=== PATIENT | female | born 1970 | race Caucasian/White ===

== ENCOUNTER 2016-04-09 09:01 | Day surgery (SDC) | payer BC ==
--- NOTE | 2016-04-08 12:37 | PCM.PREANE ---
Preanesthetic Assessment - ANESTHESIA/TRANSFUSION/FAMILY HX Anesthesia/Transfusion History: Prior Anesthesia (Multiple GA) Family History of Anesthesia Reaction: No - REVIEW OF SYSTEMS Constitutional: Reports: no symptoms DIRECTOR DIABETES: Reports: no symptoms Respiratory: Reports: no symptoms Cardiovascular: Reports: no symptoms GI: Reports: no symptoms Other: Reports: none - PHYSICAL ASSESSMENT Height: 5 ft 4 in Weight: 77.564 kg ASA Class: 3 Mental Status: alert & oriented x3 Airway Class: Mallampati = 2 Dentition: Reports: normal dentition Thyro-Mental Finger Breadths: 3 Mouth Opening Finger Breadths: 3 ROM/Head Extension: full Respiratory Status: lungs clear to auscultation bilaterally Cardiovascular Status: regular rate & rhythm, normal S1, S2, no murmur, blood pressure WNL - ALLERGIES Allergies/Adverse Reactions: Allergies Allergy/AdvReac Type Severity Reaction Status Date / Time No Known Allergies Allergy Verified 06/15/13 08:10 - ANESTHESIA PLAN Anesthesia Type Planned: MAC - ACKNOWLEDGEMENTS Pt an appropriate candidate for the planned anesthesia: Yes Alternatives and risks of anesthesia discussed w pt/guardian: Yes Pt/Guardian understands and agree with anesthesia plan: Yes PreAnesthesia Questionnaire HEENT History: Reports: Other (see below) Other HEENT History: wears glasses/contacts Cardiovascular History: Reports: Hypertension (Chronic) Respiratory History: Reports: None Gastrointestinal History: Reports: GERD Genitourinary History: Reports: Urinary incontinence 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), Seizure Other Neuro History: seizure prior to brain aneurysm surgery Psychiatric History: Reports: Depression Endocrine/Metabolic History: Reports: Diabetes, gestational, Hypothyroidism Hematologic History: Reports: Blood transfusion(s) Immunologic History: Reports: None Oncologic (Cancer) History: Reports: None Dermatologic History: Reports: None - Infectious Disease History Infectious Disease History: Reports: None - Past Surgical History Head Surgeries/Procedures: Reports: Other (see below) (Cerebral aneurysm with coiling and later clipping) HEENT Surgical History: Reports: Tonsillectomy, Other (see below) Other HEENT Surgeries/Procedures: hx ear canal surgery GI Surgical History: Reports: Cholecystectomy Female Surgical History: Reports: section, Cervical cryotherapy Other Female Surgeries/Procedures: ESSURE Other Neurological Surgeries/Procedures: hx cerebral aneurysm coiling 2009, follow up aneurysm clipping/wrap 2011 - SUBSTANCE USE Smoking Status *Q: Former Smoker Tobacco Use Within Last Twelve Months: No Second Hand Smoke Exposure: No Recreational Drug Use History: No - HOME MEDS Home Medications: Home Meds Cholecalciferol (Vitamin D3) [Vitamin D] 1,000 unit PO DAILY 12/08/13 [History] Levothyroxine Sodium [Levoxyl] 50 mcg PO DAILY 12/08/13 [History] Omeprazole 20 mg PO DAILY 12/08/13 [History] Sennosides/Docusate Sodium [Stool Softener] 1 tab PO DAILY 12/08/13 [History] amLODIPine [Norvasc] 10 mg PO DAILY 12/08/13 [History] Venlafaxine [Effexor XR] 150 mg PO DAILY 04/04/16 [History] - CURRENT (IN HOUSE) MEDS Current Meds: Current Medications Cefazolin Sodium/Dextrose 1 gm (/ Premix) 50 mls @ 100 mls/hr IV ONETIME ONE Stop: 04/09/16 05:29 Sodium Chloride (Saline Flush) 10 ml FLUSH ASDIRECTED PRN PRN Reason: Keep Vein Open Sodium Chloride (Saline Flush) 2.5 ml FLUSH ASDIRECTED PRN PRN Reason: Keep Vein Open
[~2016-04-09 09:01] MED LIST: Sodium Chloride 0.9% 10 ML Syringe FLUSH PRN; Sodium Chloride 0.9% 2.5 ML Syringe FLUSH PRN; ceFAZolin 1 GM in Premix Bag 1 BAG IV ONE
[2016-04-09] MEDS ORDERED: Lidocaine 1% with EPINEPHrine 1:100,000 20 ML MDV ONE (09:12)
[2016-04-09] MEDS ORDERED: Bupivacaine 0.25% 10 ML SDV ONE (09:12)
[2016-04-09] MEDS ORDERED: Octyl 2-Cyanoacrylate 1 Tube ONE (09:15)
[2016-04-09] MEDS ORDERED: Neomycin/Polymyxin B Bladder Irrigation 1 ML Amp ONE (09:19)
[2016-04-09] MEDS ORDERED: Lactated Ringers 1,000 ML IV SCH (09:30)
[2016-04-09] MEDS ORDERED: Propofol 200 MG/20 ML SDV ONE ×2 (09:30→11:07)
[2016-04-09] MEDS ORDERED: Midazolam 1 MG/ML 2 ML SDV ONE (09:30)
[2016-04-09] MEDS ORDERED: Lidocaine 2% 5 ML SDV ONE (09:30)
[2016-04-09] MEDS ORDERED: Ondansetron 4 MG/2 ML SDV ONE (09:30)
[2016-04-09] MEDS ORDERED: fentaNYL 250 MCG/5 ML SDV ONE (09:30)
[2016-04-09] MEDS ORDERED: fentaNYL 100 MCG/2 ML SDV IVPUSH PRN (09:46)
[2016-04-09] MEDS ORDERED: Fluorescein 5 ML Vial ONE (11:09)
[2016-04-09] MEDS ORDERED: Furosemide 40 MG/4 ML VIAL ONE (11:10)
--- NOTE | 2016-04-09 11:50 | PCM.OPNOTE ---
- General Post-Op/Procedure Note Date of Surgery/Procedure: 04/09/16 Operative Procedure(s): SIS midurethral sling (Solyx), cystoscopy Findings: Urethral hypermobility Pre Op Diagnosis: RAJANI Post-Op Diagnosis: Same Anesthesia Technique: Local, Other (see below) (TIVA) Primary Surgeon: Johanna Be Energy Trader: Elsie Romo Fluid Replacement, Intraop: 1,200 EBL in mLs: 30 Complications: None known Condition: Good Free Text/Narrative:: Dictation [id number]
--- NOTE | 2016-04-09 12:45 | PCM48HPAN ---
Post Anesthesia Note - EVALUATION WITHIN 48HRS OF ANESTHETIC Vital Signs in Normal Range: Yes Patient Participated in Evaluation: Yes Respiratory Function Stable: Yes Airway Patent: Yes Cardiovascular Function Stable: Yes Hydration Status Stable: Yes Pain Control Satisfactory: Yes Nausea and Vomiting Control Satisfactory: Yes Mental Status Recovered: Yes - COMMENTS/OBSERVATIONS Free Text/Narrative:: Pt doing well. Pt bypassed PACU. Denies problems or questions with anesthesia.
[2016-04-09 12:51] VITALS: BP 130/74
--- NOTE | 2016-04-10 06:18 | OR ---
SURGEON: Johanna Be M.D. DATE OF PROCEDURE: 04/09/2016 PREOPERATIVE DIAGNOSIS: Stress urinary incontinence with urethral hypermobility. POSTOPERATIVE DIAGNOSIS: Stress urinary incontinence with urethral hypermobility. PROCEDURE: Single incision site mid urethral sling Solyx and cystoscopy. ELECTRONIC TEST TECHNICIAN: MD Demetrius. ESTIMATED BLOOD LOSS: 30 mL. ANESTHESIA: Total IV anesthesia with local anesthetic. FLUIDS: 1200 mL crystalloid. COMPLICATIONS: None known. FINDINGS: Urethral hypermobility. DISPOSITION: The patient to PACU stable. PROCEDURE IN DETAIL: Luz is a 45-year-old female, who has ongoing difficulties with stress urinary incontinence. Cystometry has been performed and indicates she is a reasonable candidate for mid urethral sling given her stress urinary incontinence and urethral hypermobility. Risks of procedure were discussed and informed consent was obtained. The patient was taken to the operating room, where she underwent IV sedation, was placed in modified dorsal lithotomy position, prepped and draped in the usual sterile fashion. The bladder was drained. Time-out was performed. A weighted speculum was introduced in the vagina. The adductor longus muscle and the tendon was palpated on either side sharply below this in line with the clitoral ivey, a marking of pubic notch was able to be performed with marking pen. Hydrodissection with local anesthetic using 1% with epinephrine 0.25% Marcaine diluted 10 mL each in 20 mL of normal saline was introduced into the midline vaginal mucosa just below the urethral meatus along the periurethral spaces on either side. The anterior vaginal mucosa fixed directly below the urethral meatus was able to be grasped with Allis clamps and approximately 7-mm sagittal midline mucosal incision was created with a 15 blade scalpel. The edges of the mucosa were grasped on either side with Allis clamps and periurethral dissection was performed sharply and bluntly until the medial aspect of the pubic bone was able to be palpated on either side. The Solyx tape introducer was now placed through the right vaginal incision guiding it with the index finger while protecting the sulcus, and then palpating the medial aspect of the bone moving the tape approximately 5 mm away from the bone and angling toward the notching jimenez into the obturator muscle. Once the tape was secured in the obturator muscle, the introducer was removed. The patient's left side of the tape was now introduced through the left vaginal incision once again palpating the medial aspect of the bone moving the introducer slightly away from the bone, and then introducing into the obturator muscle. Attention was now performed to inspecting the tape along the midline. This seems to be appropriately fitting against the suburethral tissue. The bladder was now back filled with 240 mL of normal saline. The catheter was removed. The patient coughed vigorously. No leakage was noted. Therefore, the tape was felt to be satisfactorily tightened. The left side of the tape was now removed from the introducer. The vaginal mucosa was reapproximated using 3-0 Vicryl continuous running locked fashion. Hemostasis appears evident. Cystoscope was introduced using normal saline as suspension media and the dome of the bladder were able to be visualized and found to be intact. The trigone region was inspected. Both ureters were seen to have urine streaming from them. The kee trigone region was inspected on either side. No regions of perforation were noted. The urethra was inspected. No region of perforation noted. The Colunga catheter was now replaced after removing the cystoscope and draining the bladder, and will be removed by instillation once the patient is awakened in PACU. The vaginal sulci on either sides once again inspected and found to be intact and the midline incision was found to be hemostatic. All vaginal instruments removed. The patient tolerated the procedure well. She will go to PACU in stable condition. Sponge, instrument, and needle counts were correct x2. OLIVIA / ALAYNA /[id number]
== END 2016-04-09 14:05 | disposition home or self-care (01) ==
LOC: MW.SDS 09:01
PROVIDERS: ATTEND Obstetrics & Gynecology
DX: N39.3 Stress incontinence (female) (male) (principal); I10 Essential (primary) hypertension; F32.9 Major depressive disorder, single episode, unspecified; Z79.899 Other long term (current) drug therapy; Z87.891 Personal history of nicotine dependence
CPT/HCPCS: 36415; 57288; 84703; 85027; C1781; J0690; J2250; J2405; J3010; J7120; 00942; A9270-GY; J1940; J2704

== ENCOUNTER 2017-04-23 09:29 | Day surgery (SDC) | payer BC ==
[~2017-04-23 09:29] MED LIST changes: -ceFAZolin 1 GM in Premix Bag 1 BAG IV ONE
[2017-04-23] MEDS ORDERED: Lactated Ringers 1,000 ML IV SCH (10:15)
--- NOTE | 2017-04-23 11:20 | PCM.PREANE ---
Preanesthetic Assessment - Anesthesia/Transfusion/Family Hx Anesthesia History: Prior Anesthesia Without Reaction Family History of Anesthesia Reaction: No Transfusion History: Prior Transfusion Without Reaction - Review of Systems General: No Symptoms Pulmonary: No Symptoms Cardiovascular: No Symptoms Gastrointestinal: No Symptoms Neurological: No Symptoms Other: Reports: None - Physical Assessment NPO Status Date: 04/22/17 NPO Status Time: 23:45 O2 Sat by Pulse Oximetry: 99 Respiratory Rate: 16 Vital Signs: Last Vital Signs Temp 36.6 C 04/23/17 10:23 Pulse 90 04/23/17 10:23 Resp 16 04/23/17 10:23 BP 171/94 H 04/23/17 10:23 Pulse Ox 99 04/23/17 10:23 Height: 1.63 m Weight: 79.832 kg ASA Class: 2 Mental Status: Alert & Oriented x3 Airway Class: Mallampati = 1 Dentition: Reports: Normal Dentition ROM/Head Extension: Full Lungs: Clear to Auscultation, Normal Respiratory Effort Cardiovascular: Regular Rate, Regular Rhythm - Lab Values: Laboratory Last Values WBC 7.30 K/uL (4.0-11.0) 04/23/17 10:28 RBC 4.48 M/uL (4.30-5.90) 04/23/17 10:28 Hgb 14.1 g/dL (12.0-16.0) 04/23/17 10:28 Hct 40.9 % (36.0-46.0) 04/23/17 10:28 MCV 91.3 fL (80.0-98.0) 04/23/17 10:28 MCH 31.5 pg (27.0-32.0) 04/23/17 10:28 MCHC 34.5 g/dL (31.0-37.0) 04/23/17 10:28 RDW Std Deviation 41.0 fl (28.0-62.0) 04/23/17 10:28 RDW Coeff of Mari 12 % (11.0-15.0) 04/23/17 10:28 Plt Count 276 K/uL (150-400) 04/23/17 10:28 MPV 9.00 fL (7.40-12.00) 04/23/17 10:28 Nucleated RBC % 0.0 /100WBC 04/23/17 10:28 Nucleated RBCs # 0 K/uL 04/23/17 10:28 HCG, Qual NEGATIVE (NEG) 04/23/17 10:28 - Allergies Allergies/Adverse Reactions: Allergies Allergy/AdvReac Type Severity Reaction Status Date / Time No Known Allergies Allergy Verified 06/15/13 08:10 - Anesthesia Plan Pre-Op Medication Ordered: None - Acknowledgements Anesthesia Type Planned: General Anesthesia Pt an Appropriate Candidate for the Planned Anesthesia: Yes Alternatives and Risks of Anesthesia Discussed w Pt/Guardian: Yes Pt/Guardian Understands and Agrees with Anesthesia Plan: Yes PreAnesthesia Questionnaire HEENT History: Reports: Other (See Below) Other HEENT History: wears glasses/contacts Cardiovascular History: Reports: Hypertension Respiratory History: Reports: None Gastrointestinal History: Reports: GERD Genitourinary History: Reports: None 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: Musculoskeletal History: Reports: None Neurological History: Reports: Cerebral Aneurysms, Seizure Other Neuro History: seizure prior to brain aneurysm surgery Psychiatric History: Reports: Depression Endocrine/Metabolic History: Reports: Diabetes, Gestational, Hypothyroidism Hematologic History: Reports: Blood Transfusion(s) Other Hematologic History: states has antibody Immunologic History: Reports: None Oncologic (Cancer) History: Reports: None Dermatologic History: Reports: None - Infectious Disease History Infectious Disease History: Reports: None - Past Surgical History Head Surgeries/Procedures: Reports: Other (See Below) HEENT Surgical History: Reports: Tonsillectomy, Other (See Below) Other HEENT Surgeries/Procedures: hx ear canal surgery GI Surgical History: Reports: Cholecystectomy Female Surgical History: Reports: Section, Cervical Cryotherapy Other Female Surgeries/Procedures: ESSURE Other Neurological Surgeries/Procedures: hx cerebral aneurysm coiling 2009, follow up aneurysm clipping/wrap 2011 - SUBSTANCE USE Smoking Status *Q: Former Smoker Tobacco Use Within Last Twelve Months: No Second Hand Smoke Exposure: No Recreational Drug Use History: No - HOME MEDS Home Medications: Home Meds Cholecalciferol (Vitamin D3) [Vitamin D] 1,000 unit PO DAILY 12/08/13 [History] Levothyroxine Sodium [Levoxyl] 50 mcg PO DAILY 12/08/13 [History] Omeprazole 20 mg PO DAILY 12/08/13 [History] Sennosides/Docusate Sodium [Stool Softener] 1 tab PO DAILY 12/08/13 [History] amLODIPine [Norvasc] 10 mg PO DAILY 12/08/13 [History] Venlafaxine [Effexor XR] 150 mg PO DAILY 04/04/16 [History] - CURRENT (IN HOUSE) MEDS Current Meds: Current Medications Lactated Ringer's (Ringers, Lactated) 1,000 mls @ 125 mls/hr IV ASDIRECTED GUI Last Admin: 04/23/17 10:25 Dose: 125 mls/hr Sodium Chloride (Saline Flush) 10 ml FLUSH ASDIRECTED PRN PRN Reason: Keep Vein Open Sodium Chloride (Saline Flush) 2.5 ml FLUSH ASDIRECTED PRN PRN Reason: Keep Vein Open
[2017-04-23] MEDS ORDERED: Lidocaine 2% 5 ML SDV ONE (11:39)
[2017-04-23] MEDS ORDERED: Propofol 200 MG/20 ML SDV ONE (11:39)
[2017-04-23] MEDS ORDERED: fentaNYL 100 MCG/2 ML SDV ONE (11:40)
[2017-04-23] MEDS ORDERED: Midazolam 1 MG/ML 2 ML SDV ONE (11:40)
[2017-04-23] MEDS ORDERED: HYDROmorphone 2 MG/ML SDV ONE (11:45)
[2017-04-23] MEDS ORDERED: ePHEDrine 50 MG/ML SDV ONE (12:35)
--- NOTE | 2017-04-23 13:04 | PCM.OPNOTE ---
- General Post-Op/Procedure Note Date of Surgery/Procedure: 04/23/17 Operative Procedure(s): Diagnostic hysteroscopy, dilation and curretage, thermal endometrial ablation Findings: Normal appearing uterine cavity, without intracavitary lesions 9 cm uterus Pre Op Diagnosis: menometrorrhagia Post-Op Diagnosis: Same Anesthesia Technique: General LMA Primary Surgeon: Johanna Be Fluid Replacement, Intraop: 1,000 (fluid deficit 225 ml NS) EBL in mLs: 10 Complications: none known Condition: Good Free Text/Narrative:: Dictation [id number]
[2017-04-23] MEDS ORDERED: fentaNYL 100 MCG/2 ML SDV IVPUSH PRN (13:12)
--- NOTE | 2017-04-23 13:33 | PCM.POSTAN ---
POST ANESTHESIA ASSESSMENT - MENTAL STATUS Mental Status: Alert - VITAL SIGNS Pulse Rate: 92 SaO2: 100 Resp Rate: 14 Blood Pressure: 130/80 - RESPIRATORY Respiratory Status: Respiratory Rate WNL, Airway Patent, O2 Saturation Stable - CARDIOVASCULAR CV Status: Pulse Rate WNL, Blood Pressure Stable - GASTROINTESTINAL GI Status: No Symptoms - PAIN Pain Score: 0 - POST OP HYDRATION Hydration Status: Adequate & Stable (Doing well ready for Phase 2)
--- NOTE | 2017-04-23 14:25 | OR ---
SURGEON: Johanna Be M.D. DATE OF PROCEDURE: 04/23/2017 PREOPERATIVE DIAGNOSIS: Menometrorrhagia. POSTOPERATIVE DIAGNOSIS: Menometrorrhagia. PROCEDURES PERFORMED: Diagnostic hysteroscopy, dilation and curettage of endometrium, and thermal endometrial ablation with Rosina device. ANESTHESIA: General LMA. FLUIDS: 1000 mL crystalloid. ESTIMATED BLOOD LOSS: 10 mL. COMPLICATIONS: None. FINDINGS: A 9 cm uterine cavity. No intracavitary lesions identified. DISPOSITION: The patient to PACU in stable condition. PROCEDURES IN DETAIL: Dolores is a 46-year-old female who has had ongoing difficulty with menometrorrhagia. An endometrial biopsy was benign. Sonohysterogram revealed no definitive polypoid lesions. We had discussion of options with her. She would like to proceed with the thermal endometrial ablation and would like me to evaluate the endometrial cavity first with hysteroscope. The risks of procedure have been discussed. Her proper consent was obtained. The patient was taken to the operating room where she underwent general LMA, was placed in modified dorsal lithotomy position. She was prepped and draped in the usual sterile fashion. SCDs to the lower extremities. Bladder was drained. Removed the Colunga catheter. A time-out was performed. Speculum was introduced into the vagina. Anterior lip of cervix was grasped with an Allis clamp. A 3 mm diagnostic hysteroscope was gently introduced using normal saline as distention media. I was able to visualize the uterine cavity. The left ostia, right ostia, midline cavity, and endocervical canal were all visualized. No lesions were identified. Photographs were taken. Instrument was removed from the vagina. A gentle curettage was performed. Specimen to pathology. The Rosina device was now prepped according to chisel mortiser operator protocol. The cervical length was approximately 5 cm. The device was now introduced into the uterine cavity up to the fundus, and the arms were opened at this point. The balloon insufflated and the device was primed. At this juncture, I was able to complete a 120-second ablative cycle. Once completed, the balloon was deflated, the arms were released, and the instrument was removed from the uterine cavity. Hemostasis appeared evident. All instruments were removed from vagina. The patient tolerated the procedure well. Of note, when I first entered the vagina with speculum, there was a retained tampon noted. It was easily removed from the upper vagina without any ulceration or irritation noted. The tampon was discarded. Patient to PACU stable, instrument, sponge count correct x 2. OLIVIA / ALAYNA /[id number] MTDD
[2017-04-23 14:52] VITALS: BP 130/80
--- NOTE | 2017-04-23 14:52 | PCM48HPAN ---
Post Anesthesia Note - EVALUATION WITHIN 48HRS OF ANESTHETIC Vital Signs in Normal Range: Yes Patient Participated in Evaluation: Yes Respiratory Function Stable: Yes Airway Patent: Yes Cardiovascular Function Stable: Yes Hydration Status Stable: Yes Pain Control Satisfactory: Yes Nausea and Vomiting Control Satisfactory: Yes Mental Status Recovered: Yes Pulse Rate: 92 Resp Rate: 16 Blood Pressure: 130/80 - COMMENTS/OBSERVATIONS Free Text/Narrative:: Doing well Ready for discharge.
== END 2017-04-23 14:35 | disposition home or self-care (01) ==
LOC: MW.SDS 09:29
PROVIDERS: ATTEND Obstetrics & Gynecology
DX: N92.1 Excessive and frequent menstruation with irregular cycle (principal); I10 Essential (primary) hypertension; F32.9 Major depressive disorder, single episode, unspecified; Z79.899 Other long term (current) drug therapy; Z87.891 Personal history of nicotine dependence
CPT/HCPCS: 36415; 58563; 84703; 85027; J1170; J2250; J3010; J7120; 00952; 88305; J2704

== ENCOUNTER 2019-11-12 09:58 | Day surgery (SDC) | payer BC ==
[~2019-11-12 09:58] MED LIST changes: +Lactated Ringers 1,000 ML IV SCH; +Lidocaine 2% 5 ML SDV ONE; +Propofol 200 MG/20 ML SDV ONE; +Sodium Chloride 0.9% 10 ML SDV IV PRN; +fentaNYL 100 MCG/2 ML SDV ONE
--- NOTE | 2019-11-12 10:47 | PCM.PREANE ---
Preanesthetic Assessment - Anesthesia/Transfusion/Family Hx Anesthesia History: Prior Anesthesia Without Reaction Family History of Anesthesia Reaction: No Transfusion History: Prior Transfusion Without Reaction - Review of Systems General: No Symptoms Pulmonary: No Symptoms Cardiovascular: No Symptoms Gastrointestinal: No Symptoms Neurological: No Symptoms Other: Reports: None - Physical Assessment NPO Status Date: 11/11/19 Height: 5 ft 4 in Weight: 81.647 kg ASA Class: 2 Mental Status: Alert & Oriented x3 Airway Class: Mallampati = 1 Dentition: Reports: Normal Dentition ROM/Head Extension: Full Lungs: Clear to Auscultation, Normal Respiratory Effort - Allergies Allergies/Adverse Reactions: Allergies Allergy/AdvReac Type Severity Reaction Status Date / Time No Known Allergies Allergy Verified 11/06/19 08:40 - Blood Blood Available: No - Anesthesia Plan Pre-Op Medication Ordered: None - Acknowledgements Anesthesia Type Planned: General Anesthesia (tiva) Pt an Appropriate Candidate for the Planned Anesthesia: Yes Alternatives and Risks of Anesthesia Discussed w Pt/Guardian: Yes Pt/Guardian Understands and Agrees with Anesthesia Plan: Yes Additional Comments: PMH: htn, ashley-uses cpap, pre dm PLAN: tiva PreAnesthesia Questionnaire HEENT History: Reports: Other (See Below) Other HEENT History: wears glasses/contacts Cardiovascular History: Reports: Hypertension Respiratory History: Reports: Sleep Apnea Other Respiratory History: uses C-PAP Gastrointestinal History: Reports: GERD Genitourinary History: Reports: None 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: Musculoskeletal History: Reports: None Neurological History: Reports: Cerebral Aneurysms, Seizure Other Neuro History: seizure prior to brain aneurysm surgery Psychiatric History: Reports: Depression Endocrine/Metabolic History: Reports: Hypothyroidism Hematologic History: Reports: Blood Transfusion(s) Other Hematologic History: 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 antibody Immunologic History: Reports: None Oncologic (Cancer) History: Reports: None Dermatologic History: Reports: None - Infectious Disease History Infectious Disease History: Reports: None - Past Surgical History Head Surgeries/Procedures: Reports: Other (See Below) HEENT Surgical History: Reports: Tonsillectomy, Other (See Below) Other HEENT Surgeries/Procedures: hx ear canal surgery GI Surgical History: Reports: Cholecystectomy Female Surgical History: Reports: Section, Cervical Cryotherapy, Endometrial Ablation Other Female Surgeries/Procedures: ESSURE, states had a "bladder lift" Other Neurological Surgeries/Procedures: hx cerebral aneurysm coiling 2009, follow up aneurysm clipping/wrap 2011 - SUBSTANCE USE Smoking Status *Q: Former Smoker - HOME MEDS Home Medications: Home Meds Levothyroxine Sodium [Levoxyl] 50 mcg PO DAILY 12/08/13 [History] Omeprazole 20 mg PO DAILY 12/08/13 [History] Sennosides/Docusate Sodium [Stool Softener] 1 tab PO DAILY 12/08/13 [History] amLODIPine [Norvasc] 10 mg PO DAILY 12/08/13 [History] Venlafaxine [Effexor XR] 150 mg PO DAILY 04/04/16 [History] Biotin 5,000 mcg PO DAILY 11/06/19 [History] Fish Oil/[place]-3 Fatty Acids [Fish Oil 1,000 MG] 1 tab PO DAILY 11/06/19 [History] Multivitamin [Multi-Vitamin Daily] 1 tab PO DAILY 11/06/19 [History] Propranolol HCl [Propranolol] 1 tab PO DAILY 11/06/19 [History] cloNIDine HCL [Clonidine HCl] 1 tab PO BID 11/06/19 [History] - CURRENT (IN HOUSE) MEDS Current Meds: Current Medications Lactated Ringer's (Ringers, Lactated) 1,000 mls @ 125 mls/hr IV ASDIRECTED GUI Sodium Chloride (Saline Flush) 10 ml FLUSH ASDIRECTED PRN PRN Reason: Keep Vein Open Sodium Chloride (Saline Flush) 2.5 ml FLUSH ASDIRECTED PRN PRN Reason: Keep Vein Open Sodium Chloride (Saline Flush) 10 ml FLUSH ASDIRECTED PRN PRN Reason: Keep Vein Open Sodium Chloride (Saline Flush) 2.5 ml FLUSH ASDIRECTED PRN PRN Reason: Keep Vein Open Sodium Chloride (Normal Saline) 10 ml IV ASDIRECTED PRN PRN Reason: IV Use Discontinued Medications Fentanyl (Sublimaze) Confirm Administered Dose 100 mcg .ROUTE .STK-MED ONE Stop: 11/12/19 09:38 Lidocaine (Xylocaine-Mpf 2%) Confirm Administered Dose 5 ml .ROUTE .STK-MED ONE Stop: 11/12/19 09:37 Propofol (Diprivan 20 Ml) Confirm Administered Dose 200 mg .ROUTE .STK-MED ONE Stop: 11/12/19 09:37
[2019-11-12] MEDS ORDERED: Midazolam 1 MG/ML 2 ML SDV ONE (11:00)
[2019-11-12] MEDS ORDERED: Propofol 200 MG/20 ML SDV ONE (11:00)
--- NOTE | 2019-11-12 11:25 | PCM.OPNOTE ---
<Tex Corbett M - Last Filed: 11/12/19 11:24> - General Post-Op/Procedure Note Date of Surgery/Procedure: 11/12/19 Operative Procedure(s): Screening colonoscopy. Findings: Diverticulosis. Pre Op Diagnosis: Screening colonoscopy. Post-Op Diagnosis: Diverticulosis. Anesthesia Technique: MAC Primary Surgeon: Tena Roa Complications: None. Condition: Stable <Tena Roa M - Last Filed: 11/12/19 11:56> - General Post-Op/Procedure Note Free Text/Narrative:: Intake & Output 11/11/19 11/12/19 11/12/19 22:59 06:59 14:59 Intake Total 950 Balance 950
--- NOTE | 2019-11-12 11:35 | PCM.POSTAN ---
POST ANESTHESIA ASSESSMENT - MENTAL STATUS Mental Status: Alert, Oriented - VITAL SIGNS Vital Signs: Last Vital Signs Temp 36.1 C 11/12/19 10:27 Pulse 66 11/12/19 11:29 Resp 16 11/12/19 11:29 BP 97/63 11/12/19 11:29 Pulse Ox 97 11/12/19 11:29 - RESPIRATORY Respiratory Status: Respiratory Rate WNL, Airway Patent, O2 Saturation Stable - CARDIOVASCULAR CV Status: Pulse Rate WNL, Blood Pressure Stable - GASTROINTESTINAL GI Status: No Symptoms - PAIN Pain Score: 0 - POST OP HYDRATION Hydration Status: Adequate & Stable
--- NOTE | 2019-11-12 12:34 | OR ---
SURGEON: TENA ROA MD DATE OF PROCEDURE: 11/12/2019 PREOPERATIVE DIAGNOSIS: Screening colonoscopy. POSTOPERATIVE DIAGNOSIS: Diverticulosis. PROCEDURE PERFORMED: Screening colonoscopy. PRIMARY SURGEON: Tena Roa MD ANESTHESIA: MAC. INSTRUMENT USED: Olympus colonoscope. EXTENT OF EXAM: To the cecum. PREPARATION: Good. LIMITATIONS: None. INDICATIONS FOR EXAMINATION: The patient is a 49-year-old female who presents for a first-time screening colonoscopy. The patient and I discussed the procedure; expected perioperative course; and risks including bleeding, infection, or damage to surrounding structures including perforation. She verbalized understanding and wishes to proceed. PROCEDURE IN DETAIL: The patient was brought into the endoscopy suite and placed in the left lateral decubitus position. A time-out was completed verifying the patient's name, age, date of , allergies, and procedure to be performed. Monitored anesthesia care was induced and continuous oxygen was provided via nasal cannula throughout the procedure. After adequate sedation was achieved, a digital rectal exam was performed. This exam was within normal limits. A well-lubricated colonoscope was inserted in the rectum and advanced under direct visualization to the level of the cecum. The cecum was identified by both visual and anatomic landmarks. Multiple photographs were taken of the cecal cap. I was unable to retroflex the scope within the cecum due to looping of the scope more proximally. The scope was then fully withdrawn while examining the color, texture, anatomy, and integrity of the mucosa from the cecum to the anal canal. The patient was found to have scattered diverticula throughout the sigmoid colon. The scope was then brought into the rectum and retroflexed to allow visualization of the anal canal opening. This appeared normal and a photograph was taken. The scope was then straightened out and fully withdrawn. Cecum to anus time was 9 minutes. The patient tolerated the procedure well and was transferred to the PACU in stable condition. ENDOSCOPIC DIAGNOSIS: Diverticulosis. RECOMMENDATIONS: Follow up in clinic in 2 weeks. SHIRLEY CATALAN /[id number]
[2019-11-12 13:06] VITALS: BP 109/69; PULSE 64
== END 2019-11-12 12:00 | disposition home or self-care (01) ==
LOC: MW.SDS 09:58
PROVIDERS: ATTEND Surgery
DX: Z12.11 Encounter for screening for malignant neoplasm of colon (principal); K57.30 Diverticulosis of large intestine without perforation or abscess without bleeding; I10 Essential (primary) hypertension; E03.9 Hypothyroidism, unspecified; G47.30 Sleep apnea, unspecified; E78.5 Hyperlipidemia, unspecified; G47.33 Obstructive sleep apnea (adult) (pediatric); E66.3 Overweight; K21.9 Gastro-esophageal reflux disease without esophagitis; F32.9 Major depressive disorder, single episode, unspecified; Z79.890 Hormone replacement therapy; Z79.899 Other long term (current) drug therapy; Z87.891 Personal history of nicotine dependence; Z68.32 Body mass index [BMI] 32.0-32.9, adult
CPT/HCPCS: 45378; J2001; J2250; J2704; J3010; J7120; 00812

== ENCOUNTER 2020-10-18 10:29 | Emergency (ER) | payer BC ==
--- NOTE | 2020-10-18 12:18 | EDM.PDOC ---
ED HPI GENERAL MEDICAL PROBLEM - General Chief Complaint: Upper Extremity Injury/Pain Stated Complaint: BROKEN FINGER/TOE Time Seen by Provider: 10/18/20 11:35 Source of Information: Reports: Patient History Limitations: Reports: No Limitations - History of Present Illness INITIAL COMMENTS - FREE TEXT/NARRATIVE: HISTORY AND PHYSICAL: History of present illness: Patient is a 50-year-old female who presents to the emergency room with complaints of left distal third digit pain and left fifth toe pain and bruising. She states that she had dropped a block of cheese on her left distal third digit which is now painful, swollen and red. She has pain with palpation and movement of the distal fingertip. Does not affect the nailbed. Last night she dropped something on his left fifth toe which is now swollen, bruised Review of systems: As per history of present illness and below otherwise all systems reviewed and negative. Past medical history: As per history of present illness and as reviewed below otherwise noncontributory. Surgical history: As per history of present illness and as reviewed below otherwise noncontributory. Social history: See social history for further information Family history: As per history of present illness and as reviewed below otherwise noncontributory. Physical exam: General: Well developed and well nourished. Alert and orientated x 3. Nontoxic in appearance and in no acute distress. Vital signs are stable and have been reviewed by me. Nursing notes were reviewed. HEENT: Atraumatic, normocephalic, pupils equal and reactive bilaterally, negative for conjunctival pallor or scleral icterus, mucous membranes moist, TMs normal bilaterally, throat clear, neck supple, nontender, trachea midline. No drooling or trismus noted. No meningeal signs. No hot potato voice noted. Lungs: Clear to auscultation bilaterally. No wheezes, rales, or rhonchi. Chest nontender. Normal work of breathing, no accessory muscles used. Heart: S1S2, regular rate and rhythm without overt murmur, gallops, or rubs. No JVD. No peripheral edema Abdomen: Soft, nondistended, nontender. Normoactive bowel sounds. Negative for masses or costovertebral tenderness. Skin: Pain and swelling noted to left distal 3rd digit, does not involve the nail bed. Soft tissue swelling and bruising of left 5th toe. Healing burn to left knee, no surrounding redness or soft tissue swelling. Intact, warm, dry. No lesions or rashes noted. Hematologic: No petechiae or purpra. Mucosa appropriate color and normal nail bed color and refill. Extremities: Pain and swelling noted to left distal 3rd digit, does not involve the nail bed. Soft tissue swelling and bruising of left 5th toe. She moves all extremities per self without difficulty or deficits, negative for cords or calf pain. Neurovascular unremarkable. Neuro: Awake, alert, oriented. Cranial nerves II through XII unremarkable. Cerebellum unremarkable. Motor and sensory unremarkable throughout. Exam nonfo daquan. Psychiatric: Mood and affect are appropriate. Normal thought process. Answering questions appropriately. Please note that the patient was seen and evaluated during the 2019 SARS-CoV-2 novel coronavirus pandemic period. Community viral transmission is ongoing at time of this encounter and the emergency department is operating under pandemic response procedures. Medical Decision Making: Patient is a 50-year-old female who presents to the emergency room with complaints of crush injury of the left third digit and left fifth digit. She had 2 separate incidences where something had fallen on her digit resulting in pain, swelling and/or bruising. She is agreeable to x-rays. X-ray shows the left long finger distal phalanx base minimally displaced intra- articular dorsal avulsion fracture. Cage finger splint for left distal 3rd digit for fracture care. To wear over the next 1-2 weeks or until follows up with hand surgeon. Toe x-ray shows a possible nondisplaced fracture left small toe proximal phalanx, visualized on a single projection. No substantial malalignment. States she broke this toe before. Will have her wear supportive shoes and comfort measures. I have talked with the patient about today's findings, in addition to providing specific details for plan of care. Declines RX pain medication. Reassessment at the time of disposition demonstrates that the patient is in no acute distress. The patient is stable for discharge, counseling was provided and we discussed in great detail signs and symptoms that would prompt them to return to the Emergency Department. Medication, follow up and supportive care measures were reviewed and discussed. Voices understanding and is agreeable to plan of care. Denies any further questions or concerns at this time. Diagnostics: Finger and toe x-ray Therapeutics: Cage splint Prescription: Declines Impression: Toe contusion, left Finger fracture, left Plan: 1. You were evaluated today on an emergent basis. Your x-ray shows a finger fracture. Rest, ice and elevate as able. Use the cage splint for protection. I would like you to follow up with the Hand Surgeon, Dr Nelson at [facility] in [place]. 2. You can alternate Tylenol and ibuprofen as needed for pain and fever management. 3. We encourage you to follow up in the next few days for re-evaluation and further care/management. 4. If your symptoms should worsen, new symptoms develop or any of the signs and symptoms we discussed should arise please return to the emergency room or call 911 (if needed). Definitive disposition and diagnosis as appropriate pending reevaluation and review of above. left middle finger, left 5th toe Pain Score (Numeric/FACES): 1 - Related Data Allergies Allergy/AdvReac Type Severity Reaction Status Date / Time No Known Allergies Allergy Verified 10/18/20 11:38 Home Meds: Home Meds Levothyroxine Sodium [Levoxyl] 50 mcg PO DAILY 12/08/13 [History] Omeprazole 20 mg PO DAILY 12/08/13 [History] Sennosides/Docusate Sodium [Stool Softener] 1 tab PO DAILY 12/08/13 [History] amLODIPine [Norvasc] 10 mg PO DAILY 12/08/13 [History] Venlafaxine [Effexor XR] 150 mg PO DAILY 04/04/16 [History] Biotin 5,000 mcg PO DAILY 11/06/19 [History] Fish Oil/[place]-3 Fatty Acids [Fish Oil 1,000 MG] 1 tab PO DAILY 11/06/19 [History] Multivitamin [Multi-Vitamin Daily] 1 tab PO DAILY 11/06/19 [History] Propranolol HCl [Propranolol] 1 tab PO DAILY 11/06/19 [History] cloNIDine HCL [Clonidine HCl] 1 tab PO BID 11/06/19 [History] Past Medical History HEENT History: Reports: Other (See Below) Other HEENT History: wears glasses/contacts Cardiovascular History: Reports: Hypertension Respiratory History: Reports: Sleep Apnea Other Respiratory History: uses C-PAP Gastrointestinal History: Reports: GERD Genitourinary History: Reports: None [employer]EW[employer] 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 History: Reports: Musculoskeletal History: Reports: None Neurological History: Reports: Cerebral Aneurysms, Seizure Other Neuro History: seizure prior to brain aneurysm surgery Psychiatric History: Reports: Depression Endocrine/Metabolic History: Reports: Hypothyroidism Hematologic History: Reports: Blood Transfusion(s) Other Hematologic History: states has antibody Immunologic History: Reports: None Oncologic (Cancer) History: Reports: None Dermatologic History: Reports: None - Infectious Disease History Infectious Disease History: Reports: Chicken Pox - Past Surgical History Head Surgeries/Procedures: Reports: Other (See Below) HEENT Surgical History: Reports: Tonsillectomy, Other (See Below) Other HEENT Surgeries/Procedures: hx ear canal surgery GI Surgical History: Reports: Cholecystectomy Female Surgical History: Reports: Section, Cervical Cryotherapy, Endometrial Ablation Other Female Surgeries/Procedures: ESSURE, states had a "bladder lift" Other Neurological Surgeries/Procedures: hx cerebral aneurysm coiling 2009, follow up aneurysm clipping/wrap 2011 Social & Family History - Family History Family Medical History: No Pertinent Family History - Tobacco Use Tobacco Use Status *Q: Never Tobacco User - Alcohol Use Days Per Week of Alcohol Use: 7 Number of Drinks Per Day: 3 Total Drinks Per Week: 21 - Recreational Drug Use Recreational Drug Use: No Review of Systems - Review of Systems Review Of Systems: Comprehensive ROS is negative, except as noted in HPI. ED EXAM, GENERAL - Physical Exam Exam: See Below (See dictation) Course - Vital Signs Last Recorded V/S: Last Vital Signs Temp 97.3 F 10/18/20 11:33 Pulse 73 10/18/20 11:33 Resp 16 10/18/20 11:33 BP 124/73 10/18/20 11:33 Pulse Ox 98 10/18/20 11:33 - Orders/Labs/Meds Orders: Active Orders 24 hr Category Date Time Status Fingers Multiple Lt [CR] Stat Exams 10/18/20 11:44 Ordered Toes Fifth Digit Lt T4 [CR] Stat Exams 10/18/20 11:44 Ordered Departure - Departure Time of Disposition: 12:51 Disposition: Home, Self-Care 01 Clinical Impression: Phalanx, distal fracture of finger Qualifiers: Encounter type: initial encounter Finger: middle finger Fracture type: closed Fracture alignment: displaced Laterality: left Qualified Code(s): S62.633A - Displaced fracture of distal phalanx of left middle finger, initial encounter for closed fracture Contusion of toe of left foot Qualifiers: Encounter type: initial encounter Toe: lesser toe Damage to nail status: without damage Qualified Code(s): S90.122A - Contusion of left lesser toe(s) without damage to nail, initial encounter - Discharge Information Instructions: Finger Fracture, Adult Referrals: Michelle Henderson [Primary Care Provider] - Additional Instructions: The following information is given to patients seen in the emergency department who are being discharged to home. This information is to outline your options for follow-up care. We provide all patients seen in our emergency department with a follow-up referral. The need for follow-up, as well as the timing and circumstances, are variable depending upon the specifics of your emergency department visit. If you don't have a primary care physician on staff, we will provide you with a referral. We always advise you to contact your personal physician following an emergency department visit to inform them of the circumstance of the visit and for follow-up with them and/or the need for any referrals to a consulting specialist. The emergency department will also refer you to a specialist when appropriate. This referral assures that you have the opportunity for follow-up care with a specialist. All of these measure are taken in an effort to provide you with optimal care, which includes your follow-up. Under all circumstances we always encourage you to contact your private physician who remains a resource for coordinating your care. When calling for follow-up care, please make the office aware that this follow-up is from your recent emergency room visit. If for any reason you are refused follow-up, please contact the [facility] Emergency Department at and asked to speak to the emergency department charge nurse. [facility] [address] [place] [id number] [facility] [address] [place] [id number] Thank you for choosing the [facility] emergency department in [place] for your medical needs today. It was a pleasure caring for you. Today you were seen in the emergency department for finger fracture. 1. You were evaluated today on an emergent basis. Your x-ray shows a finger fracture. Rest, ice and elevate as able. Use the cage splint for protection. I would like you to follow up with the Hand Surgeon, Dr Nelson at [facility] in [place]. 2. You can alternate Tylenol and ibuprofen as needed for pain and fever management. 3. We encourage you to follow up in the next few days for re-evaluation and further care/management. 4. If your symptoms should worsen, new symptoms develop or any of the signs and symptoms we discussed should arise please return to the emergency room or call 911 (if needed). Sepsis Event Note (ED) - Evaluation Sepsis Screening Result: No Definite Risk - Focused Exam Vital Signs: Vital Signs Temp Pulse Resp BP Pulse Ox 10/18/20 11:33 97.3 F 73 16 124/73 98 - My Orders Last 24 Hours: My Active Orders 10/18/20 11:44 Fingers Multiple Lt [CR] Stat Toes Fifth Digit Lt T4 [CR] Stat - Assessment/Plan Last 24 Hours: My Active Orders 10/18/20 11:44 Fingers Multiple Lt [CR] Stat Toes Fifth Digit Lt T4 [CR] Stat
--- NOTE | 2020-10-18 12:49 | CR ---
INDICATION: Crush injury. TECHNIQUE: Left long finger radiographs, 3 views. COMPARISON: None available. FINDINGS: Minimally displaced oblique intra-articular fracture of the left long finger distal phalanx base dorsal aspect, involving approximately half of the articular surface. No dislocation or additional fracture identified. No radiopaque foreign body or soft tissue gas. IMPRESSION: Left long finger distal phalanx base minimally displaced intra-articular dorsal avulsion fracture. Dictated by Michael Sims MD @ 10/18/2020 12:48:35 PM Dictated by: Michael Sims MD @ 10/18/2020 12:48:43 (Electronically Signed)
--- NOTE | 2020-10-18 12:53 | CR ---
INDICATION: Crush injury. TECHNIQUE: Left small toe radiographs, 3 views. COMPARISON: None available. FINDINGS: Diffuse demineralization. No dislocation or displaced fracture. Apparent mild cortical irregularity of the small toe proximal phalanx, visualized exclusively on the lateral projection. No substantial malalignment. No dislocation or additional fracture identified. IMPRESSION: Possible nondisplaced fracture left small toe proximal phalanx, visualized on a single projection. No substantial malalignment. Dictated by Michael Sims MD @ 10/18/2020 12:52:15 PM Dictated by: Michael Sims MD @ 10/18/2020 12:52:21 (Electronically Signed)
[2020-10-18 15:58] VITALS: BP 132/94; PULSE 87
== END 2020-10-18 13:10 | disposition home or self-care (01) ==
LOC: MW.ED 10:29
DX: S62.633A Displaced fracture of distal phalanx of left middle finger, initial encounter for closed fracture (principal); S90.122A Contusion of left lesser toe(s) without damage to nail, initial encounter; I10 Essential (primary) hypertension; K21.9 Gastro-esophageal reflux disease without esophagitis; E03.9 Hypothyroidism, unspecified; Z79.899 Other long term (current) drug therapy; W20.8XXA Other cause of strike by thrown, projected or falling object, initial encounter
CPT/HCPCS: 73140-26-LT; 73140-LT; 73660-26-T4; 73660-T4; 99283-25

== ENCOUNTER 2022-08-25 23:58 | Emergency (ER) | payer BC ==
[2022-08-26] MEDS ORDERED: HYDROmorphone 1 MG/ML Syringe IVPUSH ONE (00:10)
[2022-08-26] MEDS ORDERED: HYDROmorphone 1 MG/ML Syringe IVPUSH STA (00:30)
[2022-08-26] MEDS ORDERED: Acetaminophen/HYDROcodone 325-5 MG Tab PO ONE (01:15)
[2022-08-26] MEDS ORDERED: Bacitracin Oint 28.35 GM Tube ONE (01:20)
[2022-08-26] MEDS ORDERED: Bacitracin Oint 28.35 GM Tube TOP ONE (01:23)
[2022-08-26 05:00] VITALS: BP 137/88; PULSE 75
== END 2022-08-26 02:20 | disposition home or self-care (01) ==
LOC: MW.ED 23:58
DX: T22.211A Burn of second degree of right forearm, initial encounter (principal); T22.212A Burn of second degree of left forearm, initial encounter; T21.11XA Burn of first degree of chest wall, initial encounter; T24.121A Burn of first degree of right knee, initial encounter; T24.122A Burn of first degree of left knee, initial encounter; T23.151A Burn of first degree of right palm, initial encounter; T23.111A Burn of first degree of right thumb (nail), initial encounter; T23.152A Burn of first degree of left palm, initial encounter; I10 Essential (primary) hypertension; K21.9 Gastro-esophageal reflux disease without esophagitis; E03.9 Hypothyroidism, unspecified; Z79.899 Other long term (current) drug therapy; Y27.2XXA Contact with hot fluids, undetermined intent, initial encounter
CPT/HCPCS: 16020; 96374; 99284; A9270; J1170

== ENCOUNTER 2022-08-29 10:54 | Emergency (ER) | payer BC ==
[2022-08-29] MEDS ORDERED: Acetaminophen/HYDROcodone 325-5 MG Tab PO STA (11:16)
[2022-08-29] MEDS ORDERED: Bacitracin Oint 1 GM U/D Packet TOP STA (11:16)
[2022-08-29] MEDS ORDERED: Diphtheria,Pertussis(Acell),Tetanus Vaccine 0.5 ML Syringe IM ONE (12:41)
[2022-08-29 13:01] VITALS: BP 126/74; PULSE 66
== END 2022-08-29 13:12 | disposition home or self-care (01) ==
LOC: MW.ED 10:54
DX: T24.212A Burn of second degree of left thigh, initial encounter (principal); T24.222A Burn of second degree of left knee, initial encounter; T23.201A Burn of second degree of right hand, unspecified site, initial encounter; T23.202A Burn of second degree of left hand, unspecified site, initial encounter; T21.22XA Burn of second degree of abdominal wall, initial encounter; K21.9 Gastro-esophageal reflux disease without esophagitis; I10 Essential (primary) hypertension; E03.9 Hypothyroidism, unspecified; Z23 Encounter for immunization; Z79.899 Other long term (current) drug therapy; X12.XXXA Contact with other hot fluids, initial encounter
CPT/HCPCS: 16020; 90471; 90715; 99284; A9270

== ENCOUNTER 2023-06-02 11:42 | Emergency (ER) | payer BC ==
[2023-06-02] MEDS: Sodium Chloride 0.9% 1,000 ML IV STA (12:34)
[2023-06-02] MEDS: Sodium Chloride 0.9% 10 ML Syringe FLUSH PRN (12:34)
[2023-06-02] MEDS: Meclizine 25 MG Tab PO STA (12:34)
[2023-06-02] MEDS: Sodium Chloride 0.9% 2.5 ML Syringe FLUSH PRN (12:34)
[2023-06-02 12:46] LABS: BASOPHILS ABSOLUTE AUTO 0.03 K/uL (0.00-0.20); BASOPHILS PERCENT AUTO 0.5 % (0.0-1.0); EOSINOPHILS ABSOLUTE AUTO 0.35 K/uL (0.00-0.45); EOSINOPHILS PERCENT AUTO 6.2 % (0.0-6.0); HEMATOCRIT 44.4 % (37.0-47.0); HEMOGLOBIN 15.4 g/dL (12.0-16.0); IMMATURE GRAN ABSOLUTE AUTO 0.01 K/uL (0.00-0.05); IMMATURE GRAN PERCENT AUTO 0.2 % (0.0-0.4); LYMPHOCYTES ABSOLUTE AUTO 1.75 K/uL (1.00-4.80); MEAN CORPUSCULAR HEMOGLOBIN 30.3 pg (28.0-32.0); MEAN CORPUSCULAR HGB CONC 34.7 g/dL (32.0-36.0); MEAN CORPUSCULAR VOLUME 87.4 fL (83.0-99.0); MEAN PLATELET VOLUME 8.8 fL (9.4-12.3); MONOCYTES ABSOLUTE AUTO 0.53 K/uL (0.00-0.80); MONOCYTES PERCENT AUTO 9.4 % (0.0-8.0); NEUTROPHILS ABSOLUTE AUTO 2.98 K/uL (1.80-7.70); NEUTROPHILS PERCENT AUTO 52.7 % (41.0-71.0); PLATELET COUNT,PLT 252 K/uL (150-400); RED BLOOD CELL COUNT 5.08 M/uL (4.10-5.30); WHITE BLOOD CELL COUNT,WBC 5.65 K/uL (3.9-11.3)
[2023-06-02 12:47] LABS: APPEARANCE,URINE CLEAR; BILIRUBIN,URINE NEGATIVE (NEGATIVE); COLOR,URINE YELLOW; GLUCOSE,URINE NEGATIVE (NEGATIVE); KETONES,URINE NEGATIVE (NEGATIVE); LEUKOCYTE ESTERASE,URINE NEGATIVE (NEGATIVE); NITRITE,URINE NEGATIVE (NEGATIVE); OCCULT BLOOD,URINE NEGATIVE (NEGATIVE); PROTEIN,URINE NEGATIVE (NEGATIVE); UROBILINOGEN,URINE 0.2 EU/dL (<2.0)
[2023-06-02 13:13] LABS: ALBUMIN 4.7 g/dL (3.4-5.0); BILIRUBIN TOTAL 0.6 mg/dL (0.2-1.0); CALCIUM 10.7 mg/dL (8.5-10.1); CARBON DIOXIDE,CO2 25.3 mmol/L (21.0-32.0); CREATININE 0.8 mg/dL (0.6-1.0); EST CRCL DRUG DOSING (CG) 69.42 mL/min; MAGNESIUM 1.8 mg/dL (1.8-2.4); POTASSIUM,K 3.8 mmol/L (3.5-5.1); PROTEIN TOTAL,TP 8.8 g/dL (6.4-8.2)
[2023-06-02 13:15] LABS: A/G RATIO 1.2 (0.9-1.6)
[2023-06-02 14:19] LABS: HEMOGLOBIN A1C 6.2 %
[2023-06-02 14:48] VITALS: BP 132/79; PULSE 78
== END 2023-06-02 15:02 | disposition home or self-care (01) ==
LOC: MW.ED 11:42
DX: J01.00 Acute maxillary sinusitis, unspecified (principal); R42 Dizziness and giddiness; R73.09 Other abnormal glucose; I10 Essential (primary) hypertension; K21.9 Gastro-esophageal reflux disease without esophagitis; E03.9 Hypothyroidism, unspecified; Z90.49 Acquired absence of other specified parts of digestive tract; Z75.8 Other problems related to medical facilities and other health care; Z79.84 Long term (current) use of oral hypoglycemic drugs; Z79.899 Other long term (current) drug therapy
CPT/HCPCS: 36415; 70450; 70450-26; 80053; 81003; 82947; 83036; 83690; 83735; 84443; 84484; 85025; 93005; 93010; 96360; 99283; 99285-25; A9270-GY; J3490; J7030